=== PATIENT | female | born 2000 | race Caucasian/White ===

== ENCOUNTER 2018-08-13 16:43 | Emergency (ER) | payer OTHER ==
[2018-08-13 17:12] VITALS: BP 122/80
--- NOTE | 2018-08-13 17:19 | UC ---
Throat Pain/Nasal Arnie HPI - HPI Summary HPI Summary: 17-year-old female comes in today with a chief complaint of sore throat runny nose left ear and left neck pain for 2 weeks. Patient does have a dry cough she denies any chest congestion. She has been having fevers. No shortness of breath no difficulty with swallowing. Ibuprofen does help fevers. - History of Current Complaint Chief Complaint: UCRespiratory Stated Complaint: COUGH,SWOLLEN GLAND,EAR PAIN X 3 WEEKS Time Seen by Provider: 08/13/18 17:07 Hx Last Menstrual Period: 08/05/18 Pain Intensity: 5 - Allergies/Home Medications Allergies/Adverse Reactions: Allergies Allergy/AdvReac Type Severity Reaction Status Date / Time Sulfa (Sulfonamide Allergy Unknown Verified 08/13/18 17:09 Antibiotics) Reaction Details Home Medications: Home Medications Bcp 1 tab DAILY 08/13/18 [History Confirmed 08/13/18] PMH/Surg Hx/FS Hx/Imm Hx Previously Healthy: Yes - Surgical History Surgical History: Yes Surgery Procedure, Year, and Place: Ear tube - Family History Known Family History: Negative: Diabetes - Social History Alcohol Use: None Substance Use Type: None Smoking Status (MU): Never Smoked Tobacco Review of Systems Constitutional: Fever, Chills Skin: Negative Eyes: Negative ENT: Sore Throat, Ear Ache, Nasal Discharge, Sinus Congestion Respiratory: Cough Cardiovascular: Negative Gastrointestinal: Negative Motor: Negative Neurovascular: Negative Musculoskeletal: Negative Neurological: Negative Psychological: Negative Is Patient Immunocompromised?: No All Other Systems Reviewed And Are Negative: Yes Physical Exam Triage Information Reviewed: Yes Appearance: No Pain Distress, Well-Nourished, Ill-Appearing - MILD Vital Signs: Initial Vital Signs Temp 98.2 F 08/13/18 17:08 Pulse 110 08/13/18 17:08 Resp 16 08/13/18 17:08 BP 122/80 08/13/18 17:08 Pulse Ox 99 08/13/18 17:08 Vital Signs Reviewed: Yes Eye Exam: Normal Eyes: Positive: Conjunctiva Clear ENT: Positive: Pharyngeal erythema, Nasal congestion, Nasal drainage, TM bulging - LEFT, TM red - LEFT, Tonsillar swelling, Other - Tender to palpation in the left neck inferior to the left ear. On exam is no peritonsillar abscess. Neck exam: Normal Neck: Positive: Supple Respiratory: Positive: Lungs clear, Normal breath sounds, No respiratory distress Cardiovascular: Positive: Tachycardia Musculoskeletal Exam: Normal Musculoskeletal: Positive: Strength Intact, ROM Intact Neurological Exam: Normal Neurological: Positive: Alert, Muscle Tone Normal Psychological Exam: Normal Psychological: Positive: Age Appropriate Behavior Skin Exam: Normal Throat Pain/Nasal Course/Dx - Course Course Of Treatment: SX > 10 DAYS - Differential Dx/Diagnosis Provider Diagnoses: LEFT OTITIS MEDIA Discharge - Sign-Out/Discharge Documenting (check all that apply): Patient Departure All imaging exams completed and their final reports reviewed: No Studies - Discharge Plan Condition: Stable Disposition: HOME Prescriptions: Amoxicillin/Clavulanate TAB* [Augmentin TAB 875*] 875 mg PO BID #20 tab Patient Education Materials: Ear Infection (ED) Referrals: [facility] [Outside] Additional Instructions: FOLLOW UP WITH YOUR DOCTOR IF NOT COMPLETELY IMPROVED. GET RECHECKED FOR ANY WORSENING OF YOUR CONDITION OR QUESTIONS OR CONCERNS. - Billing Disposition and Condition Condition: STABLE Disposition: Home
== END 2018-08-13 17:23 | disposition home or self-care (01) ==
LOC: UCCORT 16:43
DX: H66.92 Otitis media, unspecified, left ear (principal); Z88.1 Allergy status to other antibiotic agents
CPT/HCPCS: 99202; G0463

== ENCOUNTER 2018-08-15 19:03 | Emergency (ER) | payer OTHER ==
--- NOTE | 2018-08-15 19:13 | UC ---
Throat Pain/Nasal Arnie HPI - HPI Summary HPI Summary: 17 yo female presents with sore throat. She tells me that she was seen on 08/13 and dx'd with an ear infection and prescribed Augmentin. She had a sore throat at that time and ear pain - her ear pain has resolved, but she feels her sore throat is worse. She endorses swollen glands/neck and has some nausea since starting the Augmentin. She denies fever, chills, cough, SOB, chest pain. - History of Current Complaint Stated Complaint: SORE THROAT, SWOLLEN NECK, NAUSEA Time Seen by Provider: 08/15/18 19:13 Hx Obtained From: Patient Hx Last Menstrual Period: 08/05/18 Severity: Moderate Pain Intensity: 5 Pain Scale Used: 0-10 Numeric - Allergies/Home Medications Allergies/Adverse Reactions: Allergies Allergy/AdvReac Type Severity Reaction Status Date / Time Sulfa (Sulfonamide Allergy Unknown Verified 08/15/18 19:11 Antibiotics) Reaction Details PMH/Surg Hx/FS Hx/Imm Hx - Additional Past Medical History Additional PMH: None - Surgical History Surgical History: Yes Surgery Procedure, Year, and Place: Ear tube - Family History Known Family History: Negative: Diabetes - Social History Occupation: Student Lives: With Family Alcohol Use: None Substance Use Type: None Smoking Status (MU): Never Smoked Tobacco Review of Systems Constitutional: Negative Skin: Negative Eyes: Negative ENT: Sore Throat Respiratory: Negative Cardiovascular: Negative Gastrointestinal: Nausea Genitourinary: Negative Musculoskeletal: Negative Neurological: Negative Psychological: Negative All Other Systems Reviewed And Are Negative: Yes Physical Exam - Summary Physical Exam Summary: GENERAL: NAD. WDWN. No pain distress. SKIN: No rashes, sores, lesions, or open wounds. HEENT: Head: AT/NC Eyes: Conjunctiva clear without inflammation or discharge. Ears: Hearing grossly normal. TMs intact, no bulging, erythema, or edema. Nose: Nasal mucosa pink and moist. NTTP maxillary and frontal sinus. Throat: Posterior oropharynx mild erythema and 3+ tonsillar enlargement. No exudates. Uvula midline. No hoarse voice or muffled voice. NECK: Supple. Mild tonsillar TTP with LAD. CHEST: CTAB. No r/r/w. No accessory muscle use. Breathing comfortably and in no distress. CV: RRR. Without m/r/g. Pulses intact. Cap refill <2seconds NEURO: Alert. PSYCH: Age appropriate behavior. Triage Information Reviewed: Yes Vital Signs: Laboratory Tests 08/15/18 19:24 Group A Strep Rapid Negative Vital Signs: Temp Pulse Resp BP Pulse Ox 98.6 F 112 17 136/98 98 08/15/18 19:12 08/15/18 19:12 08/15/18 19:12 08/15/18 19:12 08/15/18 19:12 Throat Pain/Nasal Course/Dx - Course Course Of Treatment: POC strep negative. No evidence of neck/soft tissue or peritonsillar abscess on exam. Suspect tonsillitis and nausea due to the augmentin. Will rx for prednisone for tonsillitis. Advised to continue taking the Augmentin and will rx Zofran for nausea. F/u if symptoms persist. - Differential Dx/Diagnosis Provider Diagnoses: Tonsillitis Discharge - Sign-Out/Discharge Documenting (check all that apply): Patient Departure All imaging exams completed and their final reports reviewed: No Studies - Discharge Plan Condition: Stable Disposition: HOME Prescriptions: Ondansetron HCl [Zofran 4 MG TAB] 4 mg PO Q8H PRN #15 tab PRN Reason: Nausea predniSONE TAB* [Deltasone 20 MG TAB*] 40 mg PO DAILY #12 tab Patient Education Materials: Tonsillitis (ED) Referrals: No Primary Care Phys,NOPCP [Primary Care Provider] - Additional Instructions: If you develop a fever, shortness of breath, chest pain, new or worsening symptoms - please call your PCP or go to the ED. - Billing Disposition and Condition Condition: STABLE Disposition: Home
[2018-08-15 19:16] VITALS: BP 136/98
== END 2018-08-15 20:13 | disposition home or self-care (01) ==
LOC: UCCORT 19:03
DX: Z88.1 Allergy status to other antibiotic agents (principal); J03.90 Acute tonsillitis, unspecified
CPT/HCPCS: 87651; 99212; G0463